=== PATIENT | male | born 1965 | race Two or more races ===

== ENCOUNTER 2016-08-19 18:41 | Emergency (ER) | payer MEDICARE, OTHER ==
[~2016-08-19] VITALS: Ht 175.3 cm; Wt 99.8 kg
[~2016-08-19 18:41] MED LIST: ASPI-515 PO; FURO-92 PO; FURO40TA6 PO; INSU100I13 SQ; INSU100I17 SQ; METO25TA4 PEG; POTA20LI14 PO
[2016-08-19 18:55] VITALS: BP 124/72
[2016-08-19 21:14] LABS: HEMOGLOBIN 12.6 g/dL (13.7-18.0)
[2016-08-19 21:24] LABS: ASPARTATE AMINO TRANSFERASE 17 U/L (15-37); BLOOD UREA NITROGEN 89 mg/dL (7-18)
[2016-08-19] MEDS ORDERED: BENZONATATE 100 MG CAPSULE PO SCH (22:00)
== END 2016-08-19 22:52 | disposition home or self-care (01) ==
LOC: ED 20:26
DX: R05 Cough (principal); R60.0 Localized edema; I12.9 Hypertensive chronic kidney disease with stage 1 through stage 4 chronic kidney disease, or unspecified chronic kidney disease; E11.22 Type 2 diabetes mellitus with diabetic chronic kidney disease; N18.9 Chronic kidney disease, unspecified; I25.2 Old myocardial infarction; F17.200 Nicotine dependence, unspecified, uncomplicated
CPT/HCPCS: 36415; 71020; 80053; 83880; 85025; 93005

== ENCOUNTER → 2016-10-10 | Outpatient (CLI) | payer MEDICARE, OTHER | END | disposition home or self-care (01) | LOC: RAD 17:03 | PROVIDERS: ATTEND Nurse Practitioner | DX: R10.9 Unspecified abdominal pain (principal) | CPT/HCPCS: 76700 ==

== ENCOUNTER 2017-03-18 21:39 | Inpatient (IN) | payer MEDICARE, OTHER ==
[~2017-03-18] VITALS: Ht 175.3 cm; Wt 91.9 kg
[2017-03-18] MEDS ORDERED: FAMOTIDINE 20 MG TABLET ONE (22:28)
[2017-03-18] MEDS ORDERED: MAALOX/HYOSCYAMINE/LIDOCAINE 45 ML BTL ONE (22:29)
[2017-03-18] MEDS ORDERED: MAALOX/HYOSCYAMINE/LIDOCAINE 45 ML BTL PO ONE (22:30)
[2017-03-18] MEDS ORDERED: FAMOTIDINE 20 MG TABLET PO ONE (22:30)
[2017-03-18] MEDS ORDERED: SODIUM CHLORIDE FLUSH 10ML SYR IVF ONE (22:30)
[2017-03-18 22:39] LABS: HEMATOCRIT 41.5 % (39.2-51.8); HEMOGLOBIN 13.6 g/dL (13.7-18.0); WHITE BLOOD COUNT 5.3 x10^3/uL (3.4-10)
[2017-03-18 22:47] LABS: ASPARTATE AMINO TRANSFERASE 26 U/L (15-37)
[2017-03-18 22:52] LABS: IS PT STATUS REG ER OR PRE ER? YES
[2017-03-18] MEDS ORDERED: FUROSEMIDE 40 MG/4 ML ONE (23:14)
[2017-03-18 23:26] LABS: BLOOD UREA NITROGEN 102 mg/dL (7-18)
[2017-03-18] MEDS ORDERED: hydrALAzine 20 MG/ML, 1ML IVPush PRN (23:30)
[2017-03-18] MEDS ORDERED: FUROSEMIDE 40 MG/4 ML IV ONE (23:30)
[2017-03-18] MEDS ORDERED: ONDANSETRON 2MG/ML, 2ML IVPush PRN (23:30)
[2017-03-19 00:19] LABS: IS PT STATUS REG ER OR PRE ER? NO
[2017-03-19 00:27] VITALS: BP 141/87
[2017-03-19] MEDS ORDERED: SACU1TAB4 PO (01:10)
[2017-03-19] MEDS ORDERED: CHOL500015 PO (01:10)
[2017-03-19] MEDS ORDERED: INSU300I SQ (01:10)
[2017-03-19] MEDS ORDERED: CALC-112 PO (01:10)
[2017-03-19] MEDS ORDERED: OXYM15MI4 INH (01:10)
[2017-03-19] MEDS ORDERED: MECL25TA4 PO (01:10)
[2017-03-19] MEDS ORDERED: METO5TAB2 PO (01:10)
[2017-03-19] MEDS ORDERED: ASCO-96 PO (01:10)
[2017-03-19] MEDS ORDERED: INSU100C5 SQ-INSULIN (01:10)
[2017-03-19] MEDS ORDERED: METO5TAB5 PO (01:10)
[2017-03-19] MEDS: BUMETANIDE 0.25 MG/ML, 4ML IV SCH ×3 (02:17→21:15)
[2017-03-19 02:29] LABS: PATH.CAST-FLAG NOT PRESENT; SPERM-FLAG NOT PRESENT; SRC-FLAG NOT PRESENT; XTAL-FLAG NOT PRESENT; YLC-FLAG NOT PRESENT
[2017-03-19 02:33] LABS: POTASSIUM,URINE RANDOM 10 mmol/L
[2017-03-19 05:43] LABS: HEMOGLOBIN 13.6 g/dL (13.7-18.0); WHITE BLOOD COUNT 4.8 x10^3/uL (3.4-10)
[2017-03-19 05:52] LABS: BLOOD UREA NITROGEN 99 mg/dL (7-18)
[2017-03-19 06:02] LABS: IS PT STATUS REG ER OR PRE ER? NO
[2017-03-19] MEDS: INSULIN ASPART 100 UNITS/ML, PEN SQ-INSULIN SCH ×4 (07:00→21:00)
[2017-03-19] MEDS ORDERED: PANTOPRAZOLE 40 MG IV IVPush SCH (07:30)
[2017-03-19] MEDS ORDERED: METOPROLOL TARTRATE 25 MG TABLET PEG SCH (09:00)
[2017-03-19] MEDS ORDERED: INSULIN DETEMIR 100 UNITS/ML, PEN SQ-INSULIN SCH (09:00)
[2017-03-19 09:12] VITALS: BP 146/94
[2017-03-19] MEDS: SODIUM CHLORIDE FLUSH 10ML SYR IVF SCH ×2 (10:11→21:15)
[2017-03-19] MEDS: ASPIRIN 81 MG TABLET EC PO SCH (10:11)
[2017-03-19] MEDS: POTASSIUM CHLORIDE 20 MEQ TAB.ER.PRT PO SCH ×2 (11:54→17:08)
[2017-03-19 14:59] LABS: BLOOD UREA NITROGEN 99 mg/dL (7-18)
[2017-03-19] MEDS ORDERED: MAALOX/HYOSCYAMINE/LIDOCAINE 45 ML BTL PO PRN (15:00)
[2017-03-19 16:01] VITALS: BP 132/88
[2017-03-19] MEDS: SUCRALFATE 1 GM/10 ML UDC PO SCH ×2 (16:48→21:15)
[2017-03-19] MEDS ORDERED: METOCLOPRAMIDE 10MG TABLET PO PRN (17:00)
[2017-03-19 20:53] VITALS: BP 139/87
[2017-03-19] MEDS: METOPROLOL TARTRATE 25 MG TABLET PEG SCH (21:15)
[2017-03-19] MEDS: LORazepam 2 MG/ML, 1ML IVPush PRN (21:42)
[2017-03-19] MEDS: INSULIN DETEMIR 100 UNITS/ML, PEN SQ-INSULIN SCH (21:43)
[2017-03-20 00:37] VITALS: BP 125/81
[2017-03-20 05:45] LABS: HEMATOCRIT 43.3 % (39.2-51.8); HEMOGLOBIN 14.1 g/dL (13.7-18.0); WHITE BLOOD COUNT 4.9 x10^3/uL (3.4-10)
[2017-03-20 06:19] LABS: ASPARTATE AMINO TRANSFERASE 22 U/L (15-37)
[2017-03-20 06:21] LABS: BLOOD UREA NITROGEN 103 mg/dL (7-18)
[2017-03-20] MEDS: SUCRALFATE 1 GM/10 ML UDC PO SCH ×4 (07:00→20:50)
[2017-03-20] MEDS: INSULIN ASPART 100 UNITS/ML, PEN SQ-INSULIN SCH ×4 (07:00→20:41)
[2017-03-20 08:07] VITALS: BP 135/88
[2017-03-20] MEDS ORDERED: INSULIN DETEMIR 100 UNITS/ML, PEN SQ-INSULIN SCH (09:00)
[2017-03-20] MEDS: METOPROLOL TARTRATE 25 MG TABLET PEG SCH ×2 (11:15→20:50)
[2017-03-20] MEDS: SODIUM CHLORIDE FLUSH 10ML SYR IVF SCH ×2 (11:15→20:52)
[2017-03-20] MEDS: BUMETANIDE 0.25 MG/ML, 4ML IV SCH ×2 (11:16→20:52)
[2017-03-20] MEDS: CALCIUM/VITAMIN D3 250-125 TABLET PO SCH (11:16)
[2017-03-20] MEDS: ASPIRIN 81 MG TABLET EC PO SCH (11:16)
[2017-03-20] MEDS: CHOLECALCIFEROL 1,000 UNIT TABLET PO SCH (11:16)
[2017-03-20 14:00] VITALS: BP 142/86
[2017-03-20] MEDS: OXYMETAZOLINE NASAL SPRAY 0.05%, 15ML NAS PRN ×3 (17:12→23:46)
[2017-03-20 19:51] VITALS: BP 142/86
[2017-03-20] MEDS: LORazepam 2 MG/ML, 1ML IVPush PRN (20:51)
[2017-03-20] MEDS: INSULIN DETEMIR 100 UNITS/ML, PEN SQ-INSULIN SCH (20:51)
[2017-03-20] MEDS ORDERED: BUMETANIDE 0.25 MG/ML, 4ML IV SCH (21:00)
[2017-03-21 01:27] VITALS: BP 145/81
[2017-03-21 05:12] LABS: HEMATOCRIT 42.7 % (39.2-51.8); HEMOGLOBIN 14.1 g/dL (13.7-18.0)
[2017-03-21 05:22] LABS: ASPARTATE AMINO TRANSFERASE 21 U/L (15-37); BLOOD UREA NITROGEN 99 mg/dL (7-18)
[2017-03-21] MEDS: INSULIN ASPART 100 UNITS/ML, PEN SQ-INSULIN SCH ×4 (07:02→21:32)
[2017-03-21 07:05] VITALS: BP 149/89
[2017-03-21] MEDS ORDERED: POTASSIUM CHLORIDE 20 MEQ TAB.ER.PRT PO ONE (07:30)
[2017-03-21] MEDS ORDERED: GLUCAGON 1 MG IM PRN (07:30)
[2017-03-21] MEDS ORDERED: DEXTROSE 4 GM TAB.CHEW PO PRN (07:30)
[2017-03-21] MEDS ORDERED: DEXTROSE 50%, 50ML SYRINGE IVPush PRN (07:30)
[2017-03-21] MEDS: SUCRALFATE 1 GM/10 ML UDC PO SCH ×4 (08:16→21:30)
[2017-03-21] MEDS: CALCIUM/VITAMIN D3 250-125 TABLET PO SCH (08:17)
[2017-03-21] MEDS: METOPROLOL TARTRATE 25 MG TABLET PEG SCH ×2 (08:17→21:30)
[2017-03-21] MEDS: ASPIRIN 81 MG TABLET EC PO SCH (08:17)
[2017-03-21] MEDS: SODIUM CHLORIDE FLUSH 10ML SYR IVF SCH ×4 (08:17→21:31)
[2017-03-21] MEDS: CHOLECALCIFEROL 1,000 UNIT TABLET PO SCH (08:17)
[2017-03-21] MEDS: BUMETANIDE 0.25 MG/ML, 4ML IV SCH ×2 (08:18→21:31)
[2017-03-21 13:33] VITALS: BP 146/95
[2017-03-21] MEDS ORDERED: MECLIZINE 12.5 MG TABLET PO PRN (16:00)
[2017-03-21] MEDS: POTASSIUM CHLORIDE 20 MEQ TAB.ER.PRT PO SCH (16:27)
[2017-03-21] MEDS ORDERED: MECLIZINE 12.5 MG TABLET HOMEMEDPO PRN (16:30)
[2017-03-21 19:42] VITALS: BP 137/88
[2017-03-21] MEDS: OXYMETAZOLINE NASAL SPRAY 0.05%, 15ML NAS PRN (21:30)
[2017-03-21] MEDS: INSULIN DETEMIR 100 UNITS/ML, PEN SQ-INSULIN SCH (21:32)
[2017-03-21] MEDS: LORazepam 2 MG/ML, 1ML IVPush PRN (21:51)
[2017-03-22 01:38] VITALS: BP 147/91
[2017-03-22 05:34] LABS: HEMATOCRIT 43.8 % (39.2-51.8); HEMOGLOBIN 14.4 g/dL (13.7-18.0); WHITE BLOOD COUNT 5.2 x10^3/uL (3.4-10)
[2017-03-22 05:50] LABS: ASPARTATE AMINO TRANSFERASE 19 U/L (15-37); BLOOD UREA NITROGEN 95 mg/dL (7-18)
[2017-03-22 06:49] VITALS: BP 146/99
[2017-03-22] MEDS: INSULIN ASPART 100 UNITS/ML, PEN SQ-INSULIN SCH ×2 (07:00→12:01)
[2017-03-22] MEDS: SUCRALFATE 1 GM/10 ML UDC PO SCH ×2 (08:29→12:01)
[2017-03-22] MEDS: POTASSIUM CHLORIDE 20 MEQ TAB.ER.PRT PO SCH (08:29)
[2017-03-22] MEDS: SODIUM CHLORIDE FLUSH 10ML SYR IVF SCH ×2 (09:00)
[2017-03-22] MEDS: METOPROLOL TARTRATE 25 MG TABLET PEG SCH (09:34)
[2017-03-22] MEDS: BUMETANIDE 0.25 MG/ML, 4ML IV SCH (09:34)
[2017-03-22] MEDS: CHOLECALCIFEROL 1,000 UNIT TABLET PO SCH (09:34)
[2017-03-22] MEDS: CALCIUM/VITAMIN D3 250-125 TABLET PO SCH (09:34)
[2017-03-22] MEDS: ASPIRIN 81 MG TABLET EC PO SCH (09:35)
[2017-03-22 12:38] VITALS: BP 144/93
[2017-03-22] MEDS ORDERED: SUCR1ORA5 PO (12:47)
[2017-03-22] MEDS ORDERED: METO25TA2 PO (12:47)
[2017-03-22] MEDS ORDERED: FURO40TA6 PO (12:47)
[2017-03-22] MEDS ORDERED: POTA20TA6 PO (12:47)
== END 2017-03-22 17:28 | disposition home or self-care (01) | DRG 291 ==
LOC: ED 22:47 → EDIP 22:52 → ED 23:36 → 5SO 03-19 00:15 → 4WST 03-21 18:25
PROVIDERS: ADMIT Internal Medicine; ATTEND Internal Medicine
DX: I13.2 Hypertensive heart and chronic kidney disease with heart failure and with stage 5 chronic kidney disease, or end stage renal disease (principal); I50.23 Acute on chronic systolic (congestive) heart failure; E43 Unspecified severe protein-calorie malnutrition; E11.22 Type 2 diabetes mellitus with diabetic chronic kidney disease; D69.59 Other secondary thrombocytopenia; N17.9 Acute kidney failure, unspecified; N18.4 Chronic kidney disease, stage 4 (severe); I27.20 Pulmonary hypertension, unspecified; N18.5 Chronic kidney disease, stage 5; E11.65 Type 2 diabetes mellitus with hyperglycemia; Z94.0 Kidney transplant status; E87.6 Hypokalemia; I25.10 Atherosclerotic heart disease of native coronary artery without angina pectoris; I25.5 Ischemic cardiomyopathy; I34.0 Nonrheumatic mitral (valve) insufficiency; K21.9 Gastro-esophageal reflux disease without esophagitis; L29.9 Pruritus, unspecified; Z79.4 Long term (current) use of insulin; Z79.82 Long term (current) use of aspirin; Z83.3 Family history of diabetes mellitus; Z87.891 Personal history of nicotine dependence; Z95.1 Presence of aortocoronary bypass graft; Z95.810 Presence of automatic (implantable) cardiac defibrillator; Z68.29 Body mass index [BMI] 29.0-29.9, adult; Z82.49 Family history of ischemic heart disease and other diseases of the circulatory system; I25.2 Old myocardial infarction; Z81.1 Family history of alcohol abuse and dependence; Z88.8 Allergy status to other drugs, medicaments and biological substances; T45.515A Adverse effect of anticoagulants, initial encounter
CPT/HCPCS: 36415; 71020; 74241; 76705; 76770; 80048; 80053; 80069; 81001; 82306; 82436; 82947; 82962; 83036; 83690; 83735; 83880; 83970; 84100; 84133; 84300; 84443; 84484; 84550; 85025; 93005; 96374; C8929; J1940; J2060

== ENCOUNTER 2017-06-04 08:25 | Day surgery (SDC) | payer OTHER, MEDICARE ==
[~2017-06-04] VITALS: Ht 175.3 cm; Wt 95.4 kg
[~2017-06-04 08:25] MED LIST changes: +ASCO-96 PO; +CALC-112 PO; +CHOL500015 PO; +INSU100C5 SQ-INSULIN; +INSU300I SQ; +MECL25TA4 PO; +METO25TA2 PO; +METO5TAB2 PO; +METO5TAB5 PO; +OXYM15MI4 INH; +POTA20TA6 PO; +SACU1TAB4 PO; +SUCR1ORA5 PO
[2017-06-04] MEDS ORDERED: SACU1TAB7 PO (09:02)
[2017-06-04] MEDS ORDERED: ISOS20TA58 PO (09:02)
[2017-06-04] MEDS ORDERED: LACTATED RINGERS 1,000 ML IV SCH (09:02)
[2017-06-04 09:04] VITALS: BP 135/91
[2017-06-04] MEDS ORDERED: FURO80TA3 PO (09:33)
[2017-06-04] MEDS ORDERED: SODIUM CHLORIDE 0.9% 1,000 ML IV SCH (09:37)
[2017-06-04 10:44] LABS: ALANINE AMINOTRANSFERASE 25 U/L (12-78); ALBUMIN 2.8 g/dL (3.4-5.0); ANION GAP 11 mmol/L (5-15); CALCIUM 7.8 mg/dL (8.5-10.1); CHLORIDE 96 mmol/L (98-107); CREATININE 7.36 mg/dL (0.7-1.3)
[2017-06-04 10:46] LABS: ALKALINE PHOSPHATASE 198 U/L (45-117); BILIRUBIN,TOTAL 0.8 mg/dL (0.2-1.0)
[2017-06-04] MEDS ORDERED: FENTANYL PF 100 MCG/2ML IV PRN (11:30)
[2017-06-04] MEDS ORDERED: ONDANSETRON 2MG/ML, 2ML IVPush PRN (11:30)
[2017-06-04] MEDS ORDERED: MIDAZOLAM 1 MG/ML, 2ML IV PRN (11:30)
[2017-06-04] MEDS ORDERED: ALBUTEROL/IPRATROPIUM 2.5MG/0.5MG, 3 ML NPPB PRN (11:30)
== END 2017-06-04 13:25 ==
LOC: OUT 08:25
PROVIDERS: ATTEND Internal Medicine Gastroenterology
DX: K29.70 Gastritis, unspecified, without bleeding (principal); K29.80 Duodenitis without bleeding; K21.9 Gastro-esophageal reflux disease without esophagitis; E11.22 Type 2 diabetes mellitus with diabetic chronic kidney disease; N18.6 End stage renal disease; I25.10 Atherosclerotic heart disease of native coronary artery without angina pectoris; Z88.8 Allergy status to other drugs, medicaments and biological substances
CPT/HCPCS: 36415; 43239; 80053; 82962; 88305; 93005; J7030; 88342; G0461

== ENCOUNTER 2017-06-11 07:47 | Day surgery (SDC) | payer OTHER, MEDICARE ==
[~2017-06-11] VITALS: Ht 175.3 cm; Wt 92.5 kg
[~2017-06-11 07:47] MED LIST changes: +FURO80TA3 PO; +ISOS20TA58 PO; +SACU1TAB7 PO
[2017-06-11] MEDS ORDERED: SODIUM CHLORIDE 0.9% 1,000 ML IV SCH (08:07)
[2017-06-11] MEDS ORDERED: LIDOCAINE 1%, 2ML SQ PRN (08:30)
[2017-06-11] MEDS ORDERED: PLEASE ENTER HEIGHT AND WEIGHT MC SCH (08:30)
[2017-06-11 09:03] LABS: BASOPHILS # (AUTO) 0.02 x10^3/uL (0-0.1); BASOPHILS % (AUTO) 0 % (0-1); EOSINOPHILS # (AUTO) 0.16 x10^3/uL (0-0.4); EOSINOPHILS % (AUTO) 3 % (1-7); LYMPHOCYTES % (AUTO) 11 % (22-44); MD NO; MEAN CORPUSCULAR HEMOGLOBIN 28.6 pg (27.5-34.5); MEAN CORPUSCULAR HGB CONC 33.1 g/dL (33.2-36.2); MEAN CORPUSCULAR VOLUME 86.6 fL (81-97); MEAN PLATELET VOLUME 9.3 fL (7.4-10.4); MONOCYTES # (AUTO) 0.58 x10^3/uL (0.2-0.8); MONOCYTES % (AUTO) 11 % (2-9); NEUTROPHILS # (AUTO) 3.93 x10^3/uL (1.8-6.8); NEUTROPHILS % (AUTO) 74 % (42-75); PLATELET COUNT 132 x10^3/uL (130-400); RED BLOOD COUNT 5.05 x10^6/uL (4.38-5.82); RED CELL DISTRIBUTION WIDTH 16.3 % (9.4-14.8)
[2017-06-11] MEDS ORDERED: POTASSIUM PO (09:08)
[2017-06-11 09:11] VITALS: BP 126/82
[2017-06-11 09:16] LABS: ANION GAP 14 mmol/L (5-15); CALCIUM 7.3 mg/dL (8.5-10.1); CHLORIDE 96 mmol/L (98-107); CREATININE 7.07 mg/dL (0.7-1.3)
== END 2017-06-11 11:20 | disposition home or self-care (01) ==
LOC: OUT 07:47
PROVIDERS: ATTEND Surgery
DX: I13.10 Hypertensive heart and chronic kidney disease without heart failure, with stage 1 through stage 4 chronic kidney disease, or unspecified chronic kidney disease (principal); E11.22 Type 2 diabetes mellitus with diabetic chronic kidney disease; N18.4 Chronic kidney disease, stage 4 (severe); Z53.8 Procedure and treatment not carried out for other reasons; Z99.2 Dependence on renal dialysis; E11.21 Type 2 diabetes mellitus with diabetic nephropathy; H40.9 Unspecified glaucoma; E78.5 Hyperlipidemia, unspecified; Z79.82 Long term (current) use of aspirin; Z79.899 Other long term (current) drug therapy; Z79.4 Long term (current) use of insulin; K21.9 Gastro-esophageal reflux disease without esophagitis; Z90.49 Acquired absence of other specified parts of digestive tract; Z83.3 Family history of diabetes mellitus; Z88.8 Allergy status to other drugs, medicaments and biological substances
CPT/HCPCS: 36415; 80048; 82962; 85025; J3490; J7030

== ENCOUNTER 2017-08-01 20:37 | Inpatient (IN) | payer MEDICARE, OTHER ==
[~2017-08-01] VITALS: Ht 175.3 cm; Wt 95.5 kg
[~2017-08-01 20:37] MED LIST changes: +CALC0.25 PO; +GABA300C10 PO; +ISON300T4 PO; +POTASSIUM PO; +PYRI50TA5 PO; +SEVE800T7 PO
[2017-08-01] MEDS ORDERED: SODIUM CHLORIDE FLUSH 10ML SYR IVF ONE (22:00)
[2017-08-01] MEDS ORDERED: PANTOPRAZOLE 40 MG IV IVPush ONE (22:00)
[2017-08-01] MEDS ORDERED: PANTOPRAZOLE 40 MG IV ONE ×2 (22:10→22:35)
[2017-08-01 22:42] LABS: BASOPHILS # (AUTO) 0.05 x10^3/uL (0-0.1); BASOPHILS % (AUTO) 1 % (0-1); EOSINOPHILS % (AUTO) 1 % (1-7); LYMPHOCYTES # (AUTO) 0.96 x10^3/uL (1-3.4); LYMPHOCYTES % (AUTO) 12 % (22-44); MD NO; MEAN CORPUSCULAR HEMOGLOBIN 29.5 pg (27.5-34.5); MEAN CORPUSCULAR HGB CONC 33.1 g/dL (33.2-36.2); MEAN CORPUSCULAR VOLUME 89.3 fL (81-97); MEAN PLATELET VOLUME 8.5 fL (7.4-10.4); MONOCYTES # (AUTO) 0.62 x10^3/uL (0.2-0.8); MONOCYTES % (AUTO) 8 % (2-9); NEUTROPHILS # (AUTO) 6.22 x10^3/uL (1.8-6.8); NEUTROPHILS % (AUTO) 78 % (42-75); PLATELET COUNT 216 x10^3/uL (130-400); RED BLOOD COUNT 4.42 x10^6/uL (4.38-5.82); RED CELL DISTRIBUTION WIDTH 18.2 % (9.4-14.8)
[2017-08-01 22:50] LABS: ALANINE AMINOTRANSFERASE 23 U/L (12-78); ALBUMIN 3.1 g/dL (3.4-5.0); ANION GAP 12 mmol/L (5-15); CALCIUM 8.8 mg/dL (8.5-10.1); CHLORIDE 98 mmol/L (98-107); CREATININE 4.83 mg/dL (0.7-1.3)
[2017-08-01 22:54] LABS: ALKALINE PHOSPHATASE 193 U/L (45-117); BILIRUBIN,TOTAL 0.8 mg/dL (0.2-1.0); TOTAL PROTEIN 7.9 g/dL (6.4-8.2); TROPONIN I 0.021 ng/mL (0.000-0.045)
[2017-08-01] MEDS ORDERED: FURO40TA6 PO (22:55)
[2017-08-01 22:58] LABS: INTERNATIONAL NORMALIZED RATIO 1.21 (0.93-1.1); PROTHROMBIN TIME 12.5 Seconds (9.6-11.5)
[2017-08-02] MEDS ORDERED: DEXTROSE 50%, 50ML SYRINGE IVPush PRN (02:00)
[2017-08-02] MEDS ORDERED: hydrALAzine 20 MG/ML, 1ML IVPush PRN (02:00)
[2017-08-02] MEDS ORDERED: DEXTROSE 4 GM TAB.CHEW PO PRN (02:00)
[2017-08-02] MEDS ORDERED: ACETAMINOPHEN 325 MG TABLET PO PRN (02:00)
[2017-08-02] MEDS ORDERED: GLUCAGON 1 MG IM PRN (02:00)
[2017-08-02] MEDS ORDERED: morphine SULFATE 10 MG/ML, 1ML IVPush PRN (02:00)
[2017-08-02] MEDS ORDERED: ONDANSETRON 2MG/ML, 2ML IVPush PRN (02:00)
[2017-08-02] MEDS ORDERED: MAALOX/HYOSCYAMINE/LIDOCAINE 45 ML BTL PO ONE (02:30)
[2017-08-02] MEDS ORDERED: MAALOX/HYOSCYAMINE/LIDOCAINE 45 ML BTL ONE (02:45)
[2017-08-02] MEDS ORDERED: MORPHINE SULFATE 4 MG/ML, 1ML ONE (02:45)
[2017-08-02] MEDS ORDERED: ONDANSETRON 2MG/ML, 2ML ONE (02:45)
[2017-08-02] MEDS ORDERED: ENTRESTO MC SCH (07:00)
[2017-08-02] MEDS: INSULIN LISPRO 100 UNITS/ML, PEN SQ-INSULIN SCH ×2 (07:37→11:00)
[2017-08-02] MEDS ORDERED: SEVELAMER HCL 800MG TABLET PO SCH (08:00)
[2017-08-02] MEDS ORDERED: ASPIRIN 81 MG TABLET EC PO SCH (09:00)
[2017-08-02] MEDS ORDERED: PYRIDOXINE 50MG TABLET PO SCH (09:00)
[2017-08-02] MEDS ORDERED: ISONIAZID 300 MG TABLET PO SCH (09:00)
[2017-08-02] MEDS ORDERED: SACUBITRIL HOMEMEDPO SCH (09:00)
[2017-08-02] MEDS ORDERED: CLARITHROMYCIN 500 MG TABLET PO SCH (09:00)
[2017-08-02] MEDS ORDERED: OMEPRAZOLE 20 MG CAPSULE.DR PO SCH (09:00)
[2017-08-02] MEDS ORDERED: SODIUM CHLORIDE FLUSH 10ML SYR IVF SCH (09:00)
[2017-08-02] MEDS ORDERED: VALSARTAN HOMEMEDPO SCH (09:00)
[2017-08-02] MEDS ORDERED: FUROSEMIDE 40 MG TABLET PO SCH (09:00)
[2017-08-02] MEDS ORDERED: CALCITRIOL 0.25 MCG CAPSULE PO SCH (09:00)
[2017-08-02] MEDS ORDERED: AMOXICILLIN 500 MG CAPSULE PO SCH (09:00)
[2017-08-02] MEDS ORDERED: CLAR500T PO (10:03)
[2017-08-02] MEDS ORDERED: AMOX-291 PO (10:03)
[2017-08-02] MEDS ORDERED: OMEP-110 PO (10:03)
[2017-08-02] MEDS ORDERED: SUCR1ORA5 PO (10:03)
[2017-08-02 11:15] VITALS: BP 128/85
[2017-08-02 11:31] VITALS: BP 128/85
[2017-08-02] MEDS ORDERED: INSULIN GLARGINE 100 UNITS/ML, PEN SQ-INSULIN SCH (21:00)
== END 2017-08-02 11:50 | disposition home or self-care (01) | DRG 867 ==
LOC: ED 22:10 → EDIP 08-02 00:12 → 4NOR 08-02 06:38 → DCLOUNGE 08-02 11:40
PROVIDERS: ADMIT Hospitalist; ATTEND Hospitalist
DX: B96.81 Helicobacter pylori [H. pylori] as the cause of diseases classified elsewhere (principal); N18.6 End stage renal disease; I13.2 Hypertensive heart and chronic kidney disease with heart failure and with stage 5 chronic kidney disease, or end stage renal disease; E44.0 Moderate protein-calorie malnutrition; E11.22 Type 2 diabetes mellitus with diabetic chronic kidney disease; J98.11 Atelectasis; I50.9 Heart failure, unspecified; K21.9 Gastro-esophageal reflux disease without esophagitis; I25.2 Old myocardial infarction; Z79.4 Long term (current) use of insulin; Z99.2 Dependence on renal dialysis; Z88.8 Allergy status to other drugs, medicaments and biological substances
CPT/HCPCS: 36415; 71045; 80053; 82962; 83690; 83880; 84484; 85025; 85610; 85730; 93005; 96374; 96375; J2405; C9113; J2270

== ENCOUNTER → 2017-11-07 | Outpatient (CLI) | payer MEDICARE, OTHER ==
[~2017-11-07] MED LIST changes: +AMOX-291 PO; +CLAR500T PO; +OMEP-110 PO
== END | disposition home or self-care (01) ==
LOC: WOUND 08:31
PROVIDERS: ATTEND Podiatrist Foot & Ankle Surgery
DX: E11.622 Type 2 diabetes mellitus with other skin ulcer (principal); L97.211 Non-pressure chronic ulcer of right calf limited to breakdown of skin; E11.40 Type 2 diabetes mellitus with diabetic neuropathy, unspecified; E11.22 Type 2 diabetes mellitus with diabetic chronic kidney disease; I13.2 Hypertensive heart and chronic kidney disease with heart failure and with stage 5 chronic kidney disease, or end stage renal disease; N18.6 End stage renal disease; I50.23 Acute on chronic systolic (congestive) heart failure; E78.5 Hyperlipidemia, unspecified; E11.319 Type 2 diabetes mellitus with unspecified diabetic retinopathy without macular edema; E78.00 Pure hypercholesterolemia, unspecified; E11.21 Type 2 diabetes mellitus with diabetic nephropathy; G47.30 Sleep apnea, unspecified; G47.00 Insomnia, unspecified; I25.10 Atherosclerotic heart disease of native coronary artery without angina pectoris; I25.2 Old myocardial infarction; K21.9 Gastro-esophageal reflux disease without esophagitis; M06.9 Rheumatoid arthritis, unspecified; Z79.899 Other long term (current) drug therapy; Z95.1 Presence of aortocoronary bypass graft; Z99.2 Dependence on renal dialysis; Z79.4 Long term (current) use of insulin; Z79.82 Long term (current) use of aspirin
CPT/HCPCS: 97597; 99215

== ENCOUNTER → 2017-11-14 | Outpatient (CLI) | payer MEDICARE, OTHER | END | disposition home or self-care (01) | LOC: WOUND 09:24 | PROVIDERS: ATTEND Podiatrist Foot & Ankle Surgery | DX: E11.622 Type 2 diabetes mellitus with other skin ulcer (principal); L97.218 Non-pressure chronic ulcer of right calf with other specified severity; E11.40 Type 2 diabetes mellitus with diabetic neuropathy, unspecified; E11.22 Type 2 diabetes mellitus with diabetic chronic kidney disease; I13.2 Hypertensive heart and chronic kidney disease with heart failure and with stage 5 chronic kidney disease, or end stage renal disease; N18.6 End stage renal disease; I50.23 Acute on chronic systolic (congestive) heart failure; E78.5 Hyperlipidemia, unspecified; E11.319 Type 2 diabetes mellitus with unspecified diabetic retinopathy without macular edema; E78.00 Pure hypercholesterolemia, unspecified; E11.21 Type 2 diabetes mellitus with diabetic nephropathy; G47.30 Sleep apnea, unspecified; G47.00 Insomnia, unspecified; I25.10 Atherosclerotic heart disease of native coronary artery without angina pectoris; I25.2 Old myocardial infarction; K21.9 Gastro-esophageal reflux disease without esophagitis; M06.9 Rheumatoid arthritis, unspecified; Z79.899 Other long term (current) drug therapy; Z95.1 Presence of aortocoronary bypass graft; Z99.2 Dependence on renal dialysis; Z79.4 Long term (current) use of insulin; Z79.82 Long term (current) use of aspirin | CPT/HCPCS: 99214 ==

== ENCOUNTER → 2018-02-07 | Outpatient (CLI) | payer MEDICARE, OTHER ==
[~2018-02-07] MED LIST changes: +CARV-39 PO; +INSU100C SQ-INSULIN; +INSU100V8 SQ
[2018-02-07 15:54] LABS: BASOPHILS # (AUTO) 0.05 x10^3/uL (0-0.1); BASOPHILS % (AUTO) 1 % (0-1); EOSINOPHILS # (AUTO) 0.19 x10^3/uL (0-0.4); EOSINOPHILS % (AUTO) 3 % (1-7); LYMPHOCYTES % (AUTO) 14 % (22-44); MD NO; MEAN CORPUSCULAR HEMOGLOBIN 32.6 pg (27.5-34.5); MEAN CORPUSCULAR HGB CONC 33.5 g/dL (33.2-36.2); MEAN CORPUSCULAR VOLUME 97.4 fL (81-97); MEAN PLATELET VOLUME 9.4 fL (7.4-10.4); MONOCYTES % (AUTO) 10 % (2-9); NEUTROPHILS # (AUTO) 4.13 x10^3/uL (1.8-6.8); NEUTROPHILS % (AUTO) 72 % (42-75); PLATELET COUNT 119 x10^3/uL (130-400); RED CELL DISTRIBUTION WIDTH 17.1 % (9.4-14.8)
[2018-02-07 16:03] LABS: ALANINE AMINOTRANSFERASE 28 U/L (12-78); ALBUMIN 3.7 g/dL (3.4-5.0); ANION GAP 9 mmol/L (5-15); CHLORIDE 96 mmol/L (98-107); CREATININE 3.78 mg/dL (0.7-1.3)
[2018-02-07 16:06] LABS: ALKALINE PHOSPHATASE 214 U/L (45-117); BILIRUBIN,TOTAL 1.4 mg/dL (0.2-1.0); TOTAL PROTEIN 7.9 g/dL (6.4-8.2)
[2018-02-07 17:32] LABS: INTERNATIONAL NORMALIZED RATIO 1.21 (0.93-1.1); PROTHROMBIN TIME 12.5 Seconds (9.6-11.5)
== END | disposition home or self-care (01) ==
LOC: STAR 14:51
PROVIDERS: ATTEND Surgery
DX: Z01.818 Encounter for other preprocedural examination (principal); I21.9 Acute myocardial infarction, unspecified
CPT/HCPCS: 36415; 80053; 85025; 85610; 85730; 93005

== ENCOUNTER → 2018-03-31 | Outpatient (CLI) | payer OTHER, MEDICARE | END | disposition home or self-care (01) | LOC: RAD 10:46 → EDSTATUS 11:30 | PROVIDERS: ATTEND Physician Assistant | DX: K59.00 Constipation, unspecified (principal) | CPT/HCPCS: 74018 ==

== ENCOUNTER → 2018-04-03 | Outpatient (CLI) | payer OTHER, MEDICARE | END | disposition home or self-care (01) | LOC: RAD 08:45 | PROVIDERS: ATTEND Physician Assistant | DX: R10.13 Epigastric pain (principal); R14.0 Abdominal distension (gaseous); K59.00 Constipation, unspecified | CPT/HCPCS: 93975 ==

== ENCOUNTER 2018-05-19 22:20 | Emergency (ER) | payer OTHER, MEDICARE ==
[~2018-05-19] VITALS: Ht 175.3 cm; Wt 90.3 kg
[~2018-05-19 22:20] MED LIST changes: +ISON300T10 PO; -ISON300T4 PO
[2018-05-19] MEDS ORDERED: ONDANSETRON 2MG/ML, 2ML ONE (22:54)
[2018-05-19] MEDS ORDERED: MORPHINE SULFATE 4 MG/ML, 1ML ONE (22:55)
[2018-05-19] MEDS: MORPHINE SULFATE 4 MG/ML, 1ML IVPush PRN (22:56)
[2018-05-19 22:58] LABS: BASOPHILS # (AUTO) 0.02 x10^3/uL (0-0.1); BASOPHILS % (AUTO) 0 % (0-1); EOSINOPHILS # (AUTO) 0.08 x10^3/uL (0-0.4); EOSINOPHILS % (AUTO) 1 % (1-7); LYMPHOCYTES # (AUTO) 0.73 x10^3/uL (1-3.4); LYMPHOCYTES % (AUTO) 8 % (22-44); MD NO; MEAN CORPUSCULAR HEMOGLOBIN 32.6 pg (27.5-34.5); MEAN CORPUSCULAR HGB CONC 33.3 g/dL (33.2-36.2); MEAN CORPUSCULAR VOLUME 97.9 fL (81-97); MEAN PLATELET VOLUME 8.6 fL (7.4-10.4); MONOCYTES # (AUTO) 0.65 x10^3/uL (0.2-0.8); MONOCYTES % (AUTO) 7 % (2-9); NEUTROPHILS # (AUTO) 7.32 x10^3/uL (1.8-6.8); NEUTROPHILS % (AUTO) 83 % (42-75); PLATELET COUNT 180 x10^3/uL (130-400); RED BLOOD COUNT 3.45 x10^6/uL (4.38-5.82); RED CELL DISTRIBUTION WIDTH 17.2 % (9.4-14.8)
[2018-05-19] MEDS ORDERED: ONDANSETRON 2MG/ML, 2ML IVPush ONE (23:00)
[2018-05-19 23:10] LABS: ALANINE AMINOTRANSFERASE 29 U/L (12-78); ANION GAP 9 mmol/L (5-15); CALCIUM 8.7 mg/dL (8.5-10.1); CHLORIDE 98 mmol/L (98-107); CREATININE 5.66 mg/dL (0.7-1.3)
[2018-05-19 23:12] LABS: ALKALINE PHOSPHATASE 350 U/L (45-117); BILIRUBIN,TOTAL 0.8 mg/dL (0.2-1.0); TOTAL PROTEIN 7.1 g/dL (6.4-8.2)
[2018-05-20] MEDS ORDERED: MORPHINE SULFATE 4 MG/ML, 1ML ONE ×2 (00:06→00:48)
[2018-05-20] MEDS: MORPHINE SULFATE 4 MG/ML, 1ML IVPush PRN (00:07)
[2018-05-20 00:55] VITALS: BP 135/67
[2018-05-20] MEDS ORDERED: MORPHINE SULFATE 4 MG/ML, 1ML IVPush ONE (01:00)
== END 2018-05-20 01:21 | disposition home or self-care (01) ==
LOC: ED 23:02
DX: R10.31 Right lower quadrant pain (principal); I13.2 Hypertensive heart and chronic kidney disease with heart failure and with stage 5 chronic kidney disease, or end stage renal disease; E11.22 Type 2 diabetes mellitus with diabetic chronic kidney disease; N18.6 End stage renal disease; E11.65 Type 2 diabetes mellitus with hyperglycemia; I50.9 Heart failure, unspecified; E78.5 Hyperlipidemia, unspecified; I25.2 Old myocardial infarction; Z90.49 Acquired absence of other specified parts of digestive tract; Z95.0 Presence of cardiac pacemaker
CPT/HCPCS: 36415; 71045; 74176; 80053; 83690; 85025; 96374; 96375; 96376; 99284; J2405

== ENCOUNTER 2018-07-18 12:40 | Observation (INO) | payer BC, MEDICARE ==
[~2018-07-18] VITALS: Ht 175.3 cm; Wt 93.8 kg
[2018-07-18] MEDS ORDERED: SODIUM CHLORIDE 0.9% 1,000 ML IV SCH (13:47)
[2018-07-18 13:54] VITALS: BP 139/80
[2018-07-18] MEDS ORDERED: PANT20TA3 PO (14:12)
[2018-07-18] MEDS ORDERED: SACU1TAB7 PO (14:12)
[2018-07-18] MEDS ORDERED: FURO80TA3 PO (14:12)
[2018-07-18] MEDS ORDERED: ASCO500T8 PO (14:12)
[2018-07-18] MEDS ORDERED: MUSCLE RELAXER PO (14:16)
[2018-07-18 14:54] LABS: ANION GAP 13 mmol/L (5-15); CALCIUM 9.3 mg/dL (8.5-10.1); CHLORIDE 98 mmol/L (98-107)
[2018-07-18 14:55] LABS: CREATININE 5.56 mg/dL (0.7-1.3)
[2018-07-18] MEDS ORDERED: FENTANYL PF 100 MCG/2ML ONE ×2 (17:26→18:47)
[2018-07-18] MEDS ORDERED: CEFAZOLIN 1,000 MG ONE (18:26)
[2018-07-18] MEDS ORDERED: ONDANSETRON 2MG/ML, 2ML ONE (18:26)
[2018-07-18] MEDS ORDERED: PROPOFOL 10 MG/ML, 20ML ONE (18:26)
[2018-07-18] MEDS ORDERED: DEXAMETHASONE 4 MG/ML, 1ML ONE (18:26)
[2018-07-18] MEDS ORDERED: HYDROmorphone 2 MG/ML, 1ML IVPush PRN (18:30)
[2018-07-18] MEDS ORDERED: METOPROLOL 1 MG/ML, 5ML IV PRN (18:30)
[2018-07-18] MEDS ORDERED: LABETALOL 5MG/ML, 20ML IV PRN (18:30)
[2018-07-18] MEDS ORDERED: MEPERIDINE/PF 25MG/0.5ML IVPush PRN (18:30)
[2018-07-18] MEDS ORDERED: OXYcodone 5 MG/5 ML ORAL.SOL UDC PO PRN (18:30)
[2018-07-18] MEDS ORDERED: PROMETHAZINE 25 MG/ML, 1ML IV PRN (18:30)
[2018-07-18] MEDS ORDERED: hydrALAzine 20 MG/ML, 1ML IV PRN (18:30)
[2018-07-18] MEDS ORDERED: HALOPERIDOL 5 MG/ML IV PRN (18:30)
[2018-07-18] MEDS ORDERED: PROCHLORPERAZINE 5 MG/ML, 2ML IV PRN (18:30)
[2018-07-18] MEDS ORDERED: DIPHENHYDRAMINE 50 MG/ML, 1ML IVPush PRN (18:30)
[2018-07-18] MEDS ORDERED: BUPIVACAINE/PF-EPI 0.5% 1:200K INFIL ONE (18:35)
[2018-07-18] MEDS: FENTANYL PF 100 MCG/2ML IV PRN ×2 (18:49→19:26)
[2018-07-18] MEDS ORDERED: HYDROcodone/APAP 5/325 TABLET PO PRN (19:00)
[2018-07-18] MEDS ORDERED: ONDANSETRON 2MG/ML, 2ML IVPush PRN (19:00)
[2018-07-18 19:47] LABS: TROPONIN I 0.031 ng/mL (0.000-0.045)
[2018-07-18 20:33] VITALS: BP 142/84
[2018-07-18] MEDS ORDERED: SODIUM CHLORIDE FLUSH 10ML SYR IVF SCH (21:00)
== END 2018-07-18 23:15 | disposition home or self-care (01) ==
LOC: OUT 12:40 → ORIP 18:40 → 4NOR 20:18
PROVIDERS: ADMIT Surgery; ATTEND Surgery
DX: N18.6 End stage renal disease (principal); I25.10 Atherosclerotic heart disease of native coronary artery without angina pectoris; E11.21 Type 2 diabetes mellitus with diabetic nephropathy; Z88.8 Allergy status to other drugs, medicaments and biological substances; Z99.2 Dependence on renal dialysis
CPT/HCPCS: 36818; 80048; 82962; 84484; 93005; 96374; G0378; J0690; J1100; J2405; J2704; J3010; J7030; C1729; C1757; C1760

== ENCOUNTER 2018-08-25 06:45 | Day surgery (SDC) | payer BC, MEDICARE ==
[~2018-08-25] VITALS: Ht 175.3 cm; Wt 91.7 kg
[~2018-08-25 06:45] MED LIST changes: +ASCO500T8 PO; +MUSCLE RELAXER PO; +PANT20TA3 PO
[2018-08-25 07:08] VITALS: BP 136/84
[2018-08-25] MEDS ORDERED: SODIUM CHLORIDE 0.9% 1,000 ML IV SCH (07:11)
[2018-08-25] MEDS ORDERED: LIDOCAINE-MPF 1%, 5ML ONE ×2 (07:17→07:18)
[2018-08-25 07:58] LABS: BASOPHILS # (AUTO) 0.05 x10^3/uL (0-0.1); BASOPHILS % (AUTO) 1 % (0-1); EOSINOPHILS % (AUTO) 3 % (1-7); LYMPHOCYTES # (AUTO) 0.75 x10^3/uL (1-3.4); LYMPHOCYTES % (AUTO) 12 % (22-44); MD NO; MEAN CORPUSCULAR HEMOGLOBIN 31.7 pg (27.5-34.5); MEAN CORPUSCULAR HGB CONC 33.2 g/dL (33.2-36.2); MEAN CORPUSCULAR VOLUME 95.7 fL (81-97); MEAN PLATELET VOLUME 9.6 fL (7.4-10.4); MONOCYTES # (AUTO) 0.66 x10^3/uL (0.2-0.8); MONOCYTES % (AUTO) 11 % (2-9); NEUTROPHILS % (AUTO) 73 % (42-75); PLATELET COUNT 116 x10^3/uL (130-400); RED BLOOD COUNT 3.82 x10^6/uL (4.38-5.82); RED CELL DISTRIBUTION WIDTH 17.4 % (9.4-14.8)
[2018-08-25] MEDS ORDERED: VISIPAQUE 270 MG/ML, 50ML BOTTLE ONE (08:00)
[2018-08-25 08:08] LABS: ALANINE AMINOTRANSFERASE 22 U/L (12-78); ALBUMIN 3.8 g/dL (3.4-5.0); ANION GAP 12 mmol/L (5-15); CALCIUM 9.5 mg/dL (8.5-10.1); CHLORIDE 101 mmol/L (98-107); CREATININE 6.95 mg/dL (0.7-1.3)
[2018-08-25] MEDS ORDERED: MIDAZOLAM 1 MG/ML, 5ML ONE (08:08)
[2018-08-25] MEDS ORDERED: NALOXONE 1 MG/ML, 2ML ONE (08:08)
[2018-08-25] MEDS ORDERED: FENTANYL PF 100 MCG/2ML ONE (08:08)
[2018-08-25] MEDS ORDERED: FLUMAZENIL 0.1 MG/1 ML, 5ML ONE (08:08)
[2018-08-25] MEDS ORDERED: NITROGLYCERIN 5 MG/ML, 10ML ONE (08:08)
[2018-08-25 08:10] LABS: ALKALINE PHOSPHATASE 226 U/L (45-117); BILIRUBIN,TOTAL 1.5 mg/dL (0.2-1.0)
[2018-08-25] MEDS ORDERED: DEXTROSE 50%, 50ML SYRINGE ONE (08:25)
[2018-08-25] MEDS ORDERED: HYDROcodone/APAP 5/325 TABLET PO PRN (09:30)
== END 2018-08-25 12:35 | disposition home or self-care (01) ==
LOC: OUT 06:45 → ORIP 09:18 → UNDOADMOB 09:18 → OUT 12:35
PROVIDERS: ATTEND Surgery
DX: T82.590A Other mechanical complication of surgically created arteriovenous fistula, initial encounter (principal); Y83.8 Other surgical procedures as the cause of abnormal reaction of the patient, or of later complication, without mention of misadventure at the time of the procedure; Y92.89 Other specified places as the place of occurrence of the external cause; I12.0 Hypertensive chronic kidney disease with stage 5 chronic kidney disease or end stage renal disease; E11.22 Type 2 diabetes mellitus with diabetic chronic kidney disease; N18.6 End stage renal disease; E78.5 Hyperlipidemia, unspecified; Z98.890 Other specified postprocedural states; Z90.49 Acquired absence of other specified parts of digestive tract; Z79.82 Long term (current) use of aspirin; Z88.8 Allergy status to other drugs, medicaments and biological substances; Z99.2 Dependence on renal dialysis; Z79.84 Long term (current) use of oral hypoglycemic drugs
CPT/HCPCS: 36415; 36901; 80053; 82962; 85025; C1894; J2250; J3010; J7030; Q9966; J2310

== ENCOUNTER 2018-10-04 15:11 | Emergency (ER) | payer BC, MEDICARE ==
[~2018-10-04] VITALS: Ht 175.3 cm; Wt 90.4 kg
[~2018-10-04 15:11] MED LIST changes: +CEPH-368 PO; +CHOL100012 PO; -PYRI50TA5 PO; +PYRI50TA6 PO
[2018-10-04] MEDS ORDERED: OXYcodone/APAP 10/325MG TABLET ONE (15:53)
[2018-10-04 16:00] VITALS: BP 143/48
[2018-10-04] MEDS ORDERED: OXYcodone/APAP 10/325MG TABLET PO ONE (16:00)
== END 2018-10-04 16:02 | disposition home or self-care (01) ==
LOC: ED 15:41
DX: M96.841 Postprocedural hematoma of a musculoskeletal structure following other procedure (principal); I50.9 Heart failure, unspecified; I25.2 Old myocardial infarction; I11.0 Hypertensive heart disease with heart failure; E78.5 Hyperlipidemia, unspecified; E11.21 Type 2 diabetes mellitus with diabetic nephropathy; E11.65 Type 2 diabetes mellitus with hyperglycemia
CPT/HCPCS: 99282

== ENCOUNTER 2018-12-26 12:21 | Day surgery (SDC) | payer BC, MEDICARE ==
[~2018-12-26] VITALS: Ht 175.3 cm; Wt 88.3 kg
[2018-12-26 13:35] VITALS: BP 116/72
== END 2018-12-26 21:00 | disposition home or self-care (01) ==
LOC: OUT 12:21 → 4NOR 18:36 → OUT 21:00
PROVIDERS: ATTEND Surgery
DX: E11.22 Type 2 diabetes mellitus with diabetic chronic kidney disease (principal); E11.21 Type 2 diabetes mellitus with diabetic nephropathy; I12.0 Hypertensive chronic kidney disease with stage 5 chronic kidney disease or end stage renal disease; N18.6 End stage renal disease; E78.5 Hyperlipidemia, unspecified; I25.10 Atherosclerotic heart disease of native coronary artery without angina pectoris; I25.5 Ischemic cardiomyopathy; E66.3 Overweight; Z68.29 Body mass index [BMI] 29.0-29.9, adult; Z79.4 Long term (current) use of insulin; Z79.82 Long term (current) use of aspirin; Z79.899 Other long term (current) drug therapy; Z88.8 Allergy status to other drugs, medicaments and biological substances; Z90.49 Acquired absence of other specified parts of digestive tract; Z95.810 Presence of automatic (implantable) cardiac defibrillator; Z83.3 Family history of diabetes mellitus
CPT/HCPCS: 36415; 36832; 80053; 85025; J0171; J0690; J1100; J2250; J2405; J2704; J3010; G0378; J1644; J2720; J3490